=== PATIENT | female | born 1955 | race Caucasian/White ===

== ENCOUNTER → 2016-09-10 | Outpatient (CLI) | payer BC ==
--- NOTE | 2016-09-10 12:16 | EST ---
DATE OF SERVICE: 09/10/2016 AGE: 61Y SEX: F HT: 62" WT: 160 lbs. Protocol Lorenzo: X Other: Stress Stage: 3 Dur. of Exercise: 8:00 *Heart Rate Blood Pressure *Rest: 63 Rest: 129/83 * *Max. Achieved: 142 Maximum BP: 188/109 85% PMHR: 135 100% PMHR: 159 *METS: 8.1 INDICATIONS: Chest pain. MEDICATIONS: Lipitor, aspirin. CLINICAL INFORMATION: Chest pain, left arm pain. History of taking Lipitor ans aspirin. History of smoking 1 pack of cigarettes a day for 30 years. Resting ECG shows sinus rhythm, rate of 60 beats per minute, MN interval of 0.16, QRS of 0.08, normal ST-T waves. Using a standard Lorenzo protocol, a symptom-limited treadmill test was performed. Patient exercised for total of 8 minutes, attained a peak heart rate of 142 beats per minute, which is approximately 89% predicted maximum heart rate without any chest pain or pressure or ST segment deviations indicative of ischemia on any cardiac arrhythmias. Patient did not report any symptoms. IMPRESSION: 1. Baseline rhythm is sinus with normal MN interval, normal QRS, normal ST-T waves. 2. Negative exercise treadmill test at 89% predicted maximum heart rate. 3. Patient has average level of cardiopulmonary fitness as indicated by O2 max and METs. Patient at time metabolic equivalent to 8 to 9 METs.
== END | disposition home or self-care (01) ==
LOC: RADNMMAIN 10:44
PROVIDERS: ATTEND Internal Medicine
DX: M79.602 Pain in left arm (principal); E78.2 Mixed hyperlipidemia
CPT/HCPCS: 93017

== ENCOUNTER → 2018-06-09 | Outpatient (CLI) | payer BC ==
--- NOTE | 2018-06-13 11:29 | MM ---
Reason for exam: screening (asymptomatic). Last mammogram was performed 1 year and 1 month ago. History: Patient is postmenopausal. Family history of breast cancer in paternal grandmother. MG 3D Screening Mammo W/Cad Bilateral CC and MLO view(s) were taken. Prior study comparison: April 25, 2017, bilateral MG 3d screening mammo w/cad. February 28, 2016, bilateral MG 3d screening mammo w/cad. There are scattered fibroglandular densities. There is a stable focal asymmetry left upper outer quadrant. No significant changes when compared with prior studies. ASSESSMENT: Benign, BI-RAD 2 RECOMMENDATION: Routine screening mammogram of both breasts in 1 year.
== END | disposition home or self-care (01) ==
LOC: RADMAMWWP 16:15
PROVIDERS: ATTEND Obstetrics & Gynecology
DX: Z12.31 Encounter for screening mammogram for malignant neoplasm of breast (principal); Z80.3 Family history of malignant neoplasm of breast
CPT/HCPCS: 77063; 77067

== ENCOUNTER → 2019-09-29 | Outpatient (CLI) | payer BC ==
--- NOTE | 2019-09-29 13:36 | US ---
EXAMINATION TYPE: US gallbladder DATE OF EXAM: 09/29/2019 COMPARISON: NONE CLINICAL HISTORY: R14.0 Abd Bloating. EXAM MEASUREMENTS: Liver Length: 16.9 cm Gallbladder Wall: 0.2 cm CBD: 0.4 cm Right Kidney: 8.8 cm long axis. Pancreas: Tail obscured by overlying bowel gas Liver: Heterogeneous Gallbladder: wnl Evidence for sonographic Parekh's sign: No CBD: wnl Right Kidney: Measuring small. No hydronephrosis, no cystic or solid masses visualized Visualized pancreas within normal limits. Visualized liver slightly heterogeneous without mass or haja jessie dilatation. Gallbladder shows no shadowing mobile gallstones. Right kidney measures slightly smal l in size without hydronephrosis. No ascites seen on images day. Scanning of bilateral lower quadrant s at end of study shows no worrisome solid or cystic mass or fluid collection. IMPRESSION: As above.
--- NOTE | 2019-09-29 13:42 | XR ---
EXAMINATION TYPE: XR lumbosacral spine min 4V DATE OF EXAM: 09/29/2019 CLINICAL HISTORY: Chronic low back pain. TECHNIQUE: Frontal, lateral, and oblique images of the lumbar spine are obtained. COMPARISON: None FINDINGS: There are 5 lumbar type vertebral bodies identified. The lumbar spine shows straightened alignment without evidence of acute fracture or dislocation. Vertebral body heights are within normal limits. Mild to moderate multilevel disc space narrowing with mild anterior spurring. The oblique images appear within normal limits. The overlying soft tissue appears unremarkable. IMPRESSION: As above.
== END | disposition home or self-care (01) ==
LOC: RADUSMAIN 12:51
PROVIDERS: ATTEND Internal Medicine
DX: M48.061 Spinal stenosis, lumbar region without neurogenic claudication (principal); N39.0 Urinary tract infection, site not specified; R14.0 Abdominal distension (gaseous)
CPT/HCPCS: 72110; 76705

== ENCOUNTER → 2020-10-11 | Outpatient (CLI) | payer BC ==
--- NOTE | 2020-10-16 09:33 | MM ---
Reason for exam: screening (asymptomatic). Last mammogram was performed 2 years and 4 months ago. History: Patient is postmenopausal. Family history of breast cancer in paternal grandmother. Physical Findings: A clinical breast exam by your physician is recommended on an annual basis and results should be correlated with mammographic findings. MG 3D Screening Mammo W/Cad Bilateral CC and MLO view(s) were taken. Prior study comparison: June 09, 2018, bilateral MG 3d screening mammo w/cad. April 25, 2017, bilateral MG 3d screening mammo w/cad. There are scattered fibroglandular densities. Left axillary lymph node, reactive, benign appearing. ASSESSMENT: Benign, BI-RAD 2 RECOMMENDATION: Routine screening mammogram of both breasts in 1 year.
== END | disposition home or self-care (01) ==
LOC: RADMAMWWP 15:56
PROVIDERS: ATTEND Obstetrics & Gynecology
DX: Z12.31 Encounter for screening mammogram for malignant neoplasm of breast (principal); Z78.0 Asymptomatic menopausal state; Z80.3 Family history of malignant neoplasm of breast
CPT/HCPCS: 77063; 77067

== ENCOUNTER → 2021-12-03 | Outpatient (CLI) | payer MEDICARE, OTHER ==
--- NOTE | 2021-12-04 08:01 | MM ---
Reason for Exam: Screening (asymptomatic). Last mammogram was performed 1 year(s) and 2 month(s) ago. Patient History: Menarche at age 13. First Full-Term at age 24. Postmenopausal. Paternal grandmother had breast cancer, age 78. Risk Values: Lou 5 year model risk: 1.5%. NCI Lifetime model risk: 5.4%. Prior Study Comparison: 04/25/2017 Bilateral Screening Mammogram, [facility]. 06/09/2018 Bilateral Screening Mammogram, [facility]. 10/11/2020 Bilateral Screening Mammogram, [facility]. Tissue Density: The breast tissue is heterogeneously dense. This may lower the sensitivity of mammography. Findings: Analyzed By CAD. There is no suspicious group of microcalcifications or new suspicious mass in either breast. Overall Assessment: Negative, BI-RAD 1 Management: Screening Mammogram of both breasts in 1 year. A clinical breast exam by your physician is recommended on an annual basis and results should be correlated with mammographic findings. Electronically signed and approved by: Marquez Hendricks M.D. Radiologis
== END | disposition home or self-care (01) ==
LOC: RADMAMWWP 10:10
PROVIDERS: ATTEND Internal Medicine
DX: Z12.31 Encounter for screening mammogram for malignant neoplasm of breast (principal); Z78.0 Asymptomatic menopausal state; Z80.3 Family history of malignant neoplasm of breast
CPT/HCPCS: 77063; 77067

== ENCOUNTER → 2023-07-17 | Outpatient (CLI) | payer MEDICARE, OTHER ==
--- NOTE | 2023-07-18 10:40 | MM ---
Reason for Exam: Screening (asymptomatic). Last mammogram was performed 1 year(s) and 7 month(s) ago. Patient History: Menarche at age 13. First Full-Term at age 24. Postmenopausal. Paternal grandmother had breast cancer, age 78. Risk Values: Lou 5 year model risk: 1.5%. NCI Lifetime model risk: 5.0%. Prior Study Comparison: 06/09/2018 Bilateral Screening Mammogram, [facility]. 10/11/2020 Bilateral Screening Mammogram, [facility]. 12/03/2021 Bilateral MG 3D screening mammo w/cad, [facility]. Tissue Density: The breast tissue is heterogeneously dense. This may lower the sensitivity of mammography. Findings: Analyzed By CAD. There is no suspicious group of microcalcifications or new suspicious mass in either breast. Benign calcification right breast. Overall Assessment: Benign, BI-RAD 2 Management: Screening Mammogram of both breasts in 1 year. . Patient should continue monthly self-breast exams. A clinical breast exam by your physician is recommended on an annual basis. This exam should not preclude additional follow-up of suspicious palpable abnormalities. Note on Lou scores and lifetime risk: 1. A Lou score greater than 3% is considered moderate risk. If this is the case, consider specialist referral to assess eligibility for a risk reducing agent. 2. If overall lifetime risk for the development of breast cancer is 20% or higher, the patient may qualify for future screening with alternating mammogram and breast MRI. Electronically signed and approved by: Hunter Oneill M.D. Radiologis
== END | disposition home or self-care (01) ==
LOC: RADMAMWWP 13:27
PROVIDERS: ATTEND Obstetrics & Gynecology
DX: Z12.31 Encounter for screening mammogram for malignant neoplasm of breast (principal); Z80.3 Family history of malignant neoplasm of breast; Z78.0 Asymptomatic menopausal state
CPT/HCPCS: 77063; 77067

== ENCOUNTER → 2023-09-03 | Outpatient (CLI) | payer MEDICARE, OTHER ==
--- NOTE | 2023-09-04 12:30 | US ---
EXAMINATION TYPE: US thyroid st tissue head/neck DATE OF EXAM: 09/03/2023 COMPARISON: NONE CLINICAL INDICATION: Female, 68 years old with history of E03.9 HYPOTHYROIDISM, UNSPECIFIED; GLAND SIZE: Right Lobe: 4.0 x 1.5 x 1.7 cm Overall Parenchyma: homogeneous Left Lobe: 3.4 x 1.1 x 1.4 cm Overall Parenchyma: homogeneous Isthmus Thickness: 0.16 cm NODULES RIGHT: # of nodules measured on right: 0 LEFT: # of nodules measured on left: 0 ISTHMUS: # of nodules measured in the isthmus: 0 Subcentimeter nodule seen right lobe IMPRESSION: Subcentimeter too small to characterize nodule in the right lobe. No nodules greater than 1 cm in siz e 2017 ACR TI-RADS LEVEL: TR-RADS 1 - BENIGN: No FNA *Highest TI-RADS level nodule reported
== END | disposition home or self-care (01) ==
LOC: RADUSWWP 14:17
PROVIDERS: ATTEND Family Medicine
DX: E04.1 Nontoxic single thyroid nodule (principal); E03.9 Hypothyroidism, unspecified
CPT/HCPCS: 76536

== ENCOUNTER → 2024-07-30 | Outpatient (CLI) | payer MEDICARE, OTHER ==
--- NOTE | 2024-07-30 16:11 | MM ---
Reason for Exam: Screening (asymptomatic). Last mammogram was performed 1 year(s) and 1 month(s) ago. Patient History: Menarche at age 13. First Full-Term at age 24. Postmenopausal. Paternal grandmother had breast cancer, age 78. Risk Values: Lou 5 year model risk: 1.5%. NCI Lifetime model risk: 4.8%. Prior Study Comparison: 10/11/2020 Bilateral Screening Mammogram, [facility]. 12/03/2021 Bilateral MG 3D screening mammo w/cad, [facility]. 07/17/2023 Bilateral MG 3D screening mammo w/cad, [facility]. Tissue Density: There are scattered areas of fibroglandular density. Findings: Analyzed By CAD. There is no suspicious group of microcalcifications or new suspicious mass in either breast. Overall Assessment: Negative, BI-RAD 1 Management: Screening Mammogram of both breasts in 1 year. Patient should continue monthly self-breast exams. A clinical breast exam by your physician is recommended on an annual basis. This exam should not preclude additional follow-up of suspicious palpable abnormalities. Note on Lou scores and lifetime risk: 1. A Lou score greater than 3% is considered moderate risk. If this is the case, consider specialist referral to assess eligibility for a risk reducing agent. 2. If overall lifetime risk for the development of breast cancer is 20% or higher, the patient may qualify for future screening with alternating mammogram and breast MRI. [facility], , 07/30/2024 4:08 PM. Electronically signed and approved by: Janae Oconnor M.D. Radiologist
== END | disposition home or self-care (01) ==
LOC: RADMAMWWP 13:49
PROVIDERS: ATTEND Obstetrics & Gynecology
DX: Z12.31 Encounter for screening mammogram for malignant neoplasm of breast (principal); R92.323 Mammographic fibroglandular density, bilateral breasts; Z78.0 Asymptomatic menopausal state; Z80.3 Family history of malignant neoplasm of breast
CPT/HCPCS: 77063; 77067